=== PATIENT | male | born 1955 | race Asian ===

== ENCOUNTER 2020-11-23 10:18 | Observation (INO) | payer MEDICAID ==
[2020-11-23 10:59] LABS: BASOPHILS # (AUTO) 0.1 10^3/uL (0.0-0.1); BASOPHILS % (AUTO) 0.6 %; EOSINOPHILS # (AUTO) 0.2 10^3/uL (0.0-0.7); EOSINOPHILS % (AUTO) 1.6 %; HGB - HEMOGLOBIN 15.9 g/dL (14.0-18.0); LYMPHOCYTES # (AUTO) 1.9 10^3/uL (1.5-3.5); LYMPHOCYTES % (AUTO) 15.1 %; MEAN CORPUSCULAR HEMOGLOBIN 32.6 pg (27.0-31.0); MEAN CORPUSCULAR HGB CONC 34.1 g/dL (32.0-36.0); MEAN CORPUSCULAR VOLUME 95.5 fL (80.0-94.0); MEAN PLATELET VOLUME 9.7 fL (7.4-11.4); MONOCYTES # (AUTO) 0.9 10^3/uL (0.0-1.0); MONOCYTES % (AUTO) 7.5 %; NEUTROPHILS # (AUTO) 9.4 10^3/uL (1.5-6.6); PLT - PLATELET COUNT 235 10^3/uL (130-450); RED BLOOD COUNT 4.88 10^6/uL (4.70-6.10); RED CELL DISTRIBUTION WIDTH 12.6 % (12.0-15.0); WHITE BLOOD COUNT 12.6 x10^3/uL (4.8-10.8)
[2020-11-23 11:13] LABS: ALBUMIN 4.6 g/dL (3.2-5.5); ALBUMIN/GLOBULIN RATIO 1.3 (1.0-2.2); BILIRUBIN,TOTAL 0.5 mg/dL (0.2-1.0); CALCIUM 9.5 mg/dL (8.5-10.3); TOTAL PROTEIN 8.2 g/dL (6.7-8.2)
--- NOTE | 2020-11-23 11:30 | CT Report ---
PROCEDURE: HEAD WO INDICATIONS: Headache, R sided body numbness x 1 month TECHNIQUE: Noncontrast 4.5 mm thick angled axial sections acquired from the foramen magnum to the vertex. For r adiation dose reduction, the following was used: automated exposure control, adjustment of mA and/or kV according to patient size. COMPARISON: None. FINDINGS: Image quality: Excellent. CSF spaces: Basal cisterns are patent. No extra-axial fluid collections. Ventricles are normal in size and shape. Brain: No midline shift. No intracranial masses or hemorrhage. Ramos-white matter interface is norm al. Skull and face: Calvarium and visualized facial bones are intact, without suspicious lesions. Sinuses: Visualized sinuses and mastoids are clear. IMPRESSION: No acute or otherwise significant intracranial abnormality demonstrated. Reviewed by: Anthony Jimenes MD on 11/23/2020 11:29 AM PST Approved by: Anthony Jimenes MD on 11/23/2020 11:29 AM [facility] Station ID: [id number]
--- NOTE | 2020-11-23 11:53 | ED Physician Documentation ---
PD HPI FOCAL NEURO - Stated complaint Stated Complaint: MALE - Chief complaint Chief Complaint: Neuro - History obtained from History obtained from: Patient - History of Present Illness Timing - onset: Today Timing - duration: Months (1) Timing - details: Intermittant Severity of deficit: Moderate Weakness: No: Face, Arm, Hand, Leg, Foot, Right, Left Numbness: Face, Arm, Hand, Leg, Foot, Right Associated symptoms: Headache (occasional R sided headache) Contributing factors: negative: Anticoagulated, Vascular dz, Atrial fibrillation, Prosthetic heart valve Baseline status: positive: A&OX3, ambulatory, indep Similar symptoms before: Has not had sx before Recently seen: Clinic (sent from clinic today) - Additional information Additional information: 65-year-old male, smokes approximately one quarter of a pack per day of cigarettes. History of hypertension and hyperlipidemia. Presents to the emergency department with intermittent right-sided body numbness. He states that this will include to the face, arm, trunk, abdomen, leg. No weakness or difficulty walking. He states sometimes the numbness will last all day, sometimes only for a few minutes. Nothing makes it better or worse. Also has intermittent right-sided headaches. Has never had any strokelike symptoms before. No history of cardiac events. He was seen at the walk-in clinic earlier today and sent here for evaluation. Patient is accompanied by his daughter. Review of Systems Ten Systems: 10 systems reviewed and negative Constitutional: denies: Fever, Chills Eyes: denies: Loss of vision, Decreased vision, Photophobia Ears: denies: Ear pain Nose: denies: Rhinorrhea / runny nose, Congestion Throat: denies: Sore throat Cardiac: denies: Chest pain / pressure Respiratory: denies: Dyspnea, Cough GI: denies: Abdominal Pain, Nausea, Vomiting, Diarrhea : reports: Dysuria (mild). denies: Frequency, Hesitancy Skin: denies: Rash Musculoskeletal: denies: Neck pain, Back pain Neurologic: reports: Headache (gradual onset, intermittent, 5/10) PD PAST MEDICAL HISTORY - Past Medical History Cardiovascular: Hypertension, High cholesterol - Present Medications Home Medications: Ambulatory Orders Medication Instructions Recorded Confirmed Acetaminophen [Tylenol] 650 mg PO PRN PRN 11/23/20 11/23/20 - Allergies Allergies/Adverse Reactions: Allergies Allergy/AdvReac Type Severity Reaction Status Date / Time No Known Drug Allergies Allergy Verified 11/23/20 10:37 - Living Situation Living Situation: reports: With family Living Arrangement: reports: At home - Social History Does the pt smoke?: Yes Smoking Status: Current every day smoker Does the pt drink ETOH?: Yes Does the pt have substance abuse?: No PD ED PE NORMAL - Vitals Vital signs reviewed: Yes - General General: Alert and oriented X 3, No acute distress, Well developed/nourished - HEENT HEENT: Atraumatic, PERRL, EOMI, Ears normal, Moist mucous membranes, Pharynx benign - Neck Neck: Supple, no meningeal sign - Cardiac Cardiac: RRR, Strong equal pulses - Respiratory Respiratory: No respiratory distress, Clear bilaterally - Abdomen Abdomen: Soft, Non tender, Non distended - Back Back: No CVA TTP, No spinal TTP - Derm Derm: Warm and dry - Extremities Extremities: No edema, No calf tenderness / cord - Neuro Neuro: Alert and oriented X 3, No motor deficit, Other (mild numbness to the R face, arm, leg and trunk. ) Eye Opening: Spontaneous Motor: Obeys Commands Verbal: Oriented GCS Score: 15 - Psych Psych: Normal mood, Normal affect NIHSS - Time Time: 11:30 - Level of Consciousness Level of consciousness: (0) Alert, Keenly responsive LOC Questions: (0) Answers both Q's correct LOC Commands: (0) Performs both correctly - Gaze Best Gaze: (0) Normal - Visual Visual: (0) No loss - Facial Palsy Facial Palsy: (0) Normal, symmetrical movement - Motor Arms (both separate) Motor Arm (right): (0) No drift Motor Arm (left): (0) No drift - Motor Legs (both separate) Motor Leg (right): (0) No drift Motor Leg (left): (0) No drift - Limb Ataxia Limb Ataxia: (0) Absent - Sensory Sensory: (1) Azgi-oj-nkfzbuuk loss - Best Language Best Language: (0) No aphasia - Dysarthria Dysarthria: (0) Normal - Extinction and Inattention (formally neg Extinction and inattention: (0) No abnormality - Total Score/Results Total Score/Result: 1 Results - Vitals Vitals: Vital Signs - 24 hr 11/23/20 11/23/20 11/23/20 10:25 10:46 10:57 Temperature 37.1 C Heart Rate 103 H 99 92 Respiratory 19 20 13 Rate Blood Pressure 184/108 H 208/128 H 208/128 H O2 Saturation 100 97 11/23/20 11/23/20 11/23/20 11:07 11:37 12:05 Temperature Heart Rate 93 93 85 Respiratory 22 22 16 Rate Blood Pressure 195/117 H 176/110 H 195/118 H O2 Saturation 98 99 97 Oxygen O2 Source Room air - Labs Labs: Laboratory Tests 11/23/20 11/23/20 11/23/20 10:52 10:52 10:52 WBC 12.6 H RBC 4.88 Hgb 15.9 Hct 46.6 MCV 95.5 H MCH 32.6 H MCHC 34.1 RDW 12.6 Plt Count 235 MPV 9.7 Neut # (Auto) 9.4 H Lymph # (Auto) 1.9 Anson # (Auto) 0.9 Eos # (Auto) 0.2 Baso # (Auto) 0.1 Absolute Nucleated RBC 0.00 Nucleated RBC % 0.0 PT 11.3 INR 1.0 Sodium 139 Potassium 3.6 Chloride 104 Carbon Dioxide 25 Anion Gap 10.0 BUN 16 Creatinine 1.0 Estimated GFR (MDRD) 75 L Glucose 103 H Calcium 9.5 Total Bilirubin 0.5 AST 30 ALT 31 Alkaline Phosphatase 63 Total Protein 8.2 Albumin 4.6 Globulin 3.6 Albumin/Globulin Ratio 1.3 Lipase 35 Nasal Adenovirus (PCR) Nasal B. parapertussis DNA (PCR) Nasal Coronavir 229E PCR Nasal Coronavir HKU1 PCR Nasal Coronavir NL63 PCR Nasal Coronavir OC43 PCR Nasal Enterovir/Rhinovir PCR Nasal Influenza B PCR Nasal Influenza A PCR Nasal Parainfluen 1 PCR Nasal Parainfluen 2 PCR Nasal Parainfluen 3 PCR Nasal Parainfluen 4 PCR Nasal RSV (PCR) Nasal B.pertussis DNA PCR Nasal C.pneumoniae (PCR) Aleks Human Metapneumo PCR Nasal M.pneumoniae (PCR) Nasal SARS-CoV-2 (PCR) 11/23/20 12:05 WBC RBC Hgb Hct MCV MCH MCHC RDW Plt Count MPV Neut # (Auto) Lymph # (Auto) Anson # (Auto) Eos # (Auto) Baso # (Auto) Absolute Nucleated RBC Nucleated RBC % PT INR Sodium Potassium Chloride Carbon Dioxide Anion Gap BUN Creatinine Estimated GFR (MDRD) Glucose Calcium Total Bilirubin AST ALT Alkaline Phosphatase Total Protein Albumin Globulin Albumin/Globulin Ratio Lipase Nasal Adenovirus (PCR) NOT DETECTED Nasal B. parapertussis DNA (PCR) NOT DETECTED Nasal Coronavir 229E PCR NOT DETECTED Nasal Coronavir HKU1 PCR NOT DETECTED Nasal Coronavir NL63 PCR NOT DETECTED Nasal Coronavir OC43 PCR NOT DETECTED Nasal Enterovir/Rhinovir PCR NOT DETECTED Nasal Influenza B PCR NOT DETECTED Nasal Influenza A PCR NOT DETECTED Nasal Parainfluen 1 PCR NOT DETECTED Nasal Parainfluen 2 PCR NOT DETECTED Nasal Parainfluen 3 PCR NOT DETECTED Nasal Parainfluen 4 PCR NOT DETECTED Nasal RSV (PCR) NOT DETECTED Nasal B.pertussis DNA PCR NOT DETECTED Nasal C.pneumoniae (PCR) NOT DETECTED Aleks Human Metapneumo PCR NOT DETECTED Nasal M.pneumoniae (PCR) NOT DETECTED Nasal SARS-CoV-2 (PCR) NOT DETECTED - Rads (name of study) Head CT Radiology: Prelim report reviewed, EMP read contemporaneously, See rad report (No acute or otherwise significant intracranial abnormality demonstrated. ) PD MEDICAL DECISION MAKING - ED course Complexity details: reviewed results, re-evaluated patient, considered differential, d/w patient, d/w family, d/w retail client solutions consultant ED course: 65 year old male with recurrent stroke like symptoms. no acute findings on head CT. Would benefit from TIA/CVA workup. D/w Dr. Patino, hospitalist accepts Departure - Departure Disposition: ED Place in Observation Clinical Impression: Stroke-like symptoms Condition: Stable Discharge Date/Time: 11/23/20 13:27
[2020-11-23] MEDS ORDERED: BUTALB/ACETAM/CAFF 50/325/40MG TABLET PO STA (11:54)
[2020-11-23] MEDS ORDERED: SODIUM CHLORIDE FLUSH 0.9% 10 ML SYRINGE IVP PRN (12:25)
[2020-11-23] MEDS ORDERED: hydrALAZINE INJ 20 MG/ML VIAL IVP PRN (12:32)
[2020-11-23 12:49] LABS: PT - PROTHROMBIN TIME 11.3 secs (9.9-12.6)
[2020-11-23 13:02] LABS: C. PNEUMONIAE- RESP PCR PANEL NOT DETECTED
[2020-11-23 13:38] LABS: BILIRUBIN,URINE NEGATIVE (NEGATIVE); CLARITY,URINE CLEAR (CLEAR); GLUCOSE, URINE (UA) NEGATIVE (NEGATIVE); KETONES,URINE (UA) NEGATIVE (NEGATIVE); LEUKOCYTE ESTERASE, URINE NEGATIVE (NEGATIVE); NITRITE,URINE NEGATIVE (NEGATIVE); OCCULT BLOOD,URINE NEGATIVE (NEGATIVE); PROTEIN,URINE NEGATIVE (NEGATIVE); UROBILINOGEN,URINE 0.2 (NORMAL) E.U./dL (NORMAL)
[2020-11-23] MEDS: SODIUM CHLORIDE FLUSH 0.9% 10 ML SYRINGE IVP SCH ×2 (13:47→23:52)
[2020-11-23 13:49] LABS: BACTERIA,URINE Rare /HPF (None Seen); RBC,URINE None Seen /HPF (0-5); SQUAMOUS EPITHELIAL CELL,UR RARE Squamous (<= Few)
--- NOTE | 2020-11-23 17:35 | PHARMACY PROGRESS NOTE ---
- Best Possible Medication History Admit Date and Time: 11/23/20 1225 Processed by: Pharmacy Medication History completed: Yes Patient Interview: Pt interview ONLY source (Completed by Avila 11/23, per pt no other medication) As the person ultimately responsible for medication therapy, providers are able to order a medication from an existing home medication list in [facility] via the "Reconcile Routine" prior to Confirmation of that medication by cell support operator. Such practice is discouraged except when the physician, in their clinical judgment, deems that a medical need exists for a medication without regard to previous use.
[2020-11-23] MEDS ORDERED: amLODIPine 5 MG TABLET PO STA (18:40)
[2020-11-23] MEDS: ACETAMINOPHEN 325 MG TABLET PO PRN ×2 (19:23→23:52)
[2020-11-23] MEDS: FAMOTIDINE 20 MG TABLET PO SCH (21:09)
[2020-11-23] MEDS: CIPROFLOXACIN 250 MG TABLET PO SCH (21:09)
[2020-11-24 05:58] LABS: CHOL/HDL RATIO 5.3 (<5.0); CHOLESTEROL 224 mg/dL; HDL CHOLESTEROL 42 mg/dL; LDL CHOLESTEROL,CALCULATED 139 mg/dL; LDL/HDL RATIO 3.3 (<3.6); VLDL CHOLESTEROL 43 mg/dL
[2020-11-24] MEDS: FAMOTIDINE 20 MG TABLET PO SCH ×2 (08:52→19:29)
[2020-11-24] MEDS: CIPROFLOXACIN 250 MG TABLET PO SCH (08:52)
[2020-11-24] MEDS: SODIUM CHLORIDE FLUSH 0.9% 10 ML SYRINGE IVP SCH ×2 (08:57→16:12)
[2020-11-24] MEDS ORDERED: amLODIPine 5 MG TABLET PO SCH ×3 (09:00→10:00)
[2020-11-24] MEDS ORDERED: hydrALAZINE INJ 20 MG/ML VIAL IVP PRN ×2 (09:01→18:22)
[2020-11-24 10:42] LABS: BASOPHILS # (AUTO) 0.1 10^3/uL (0.0-0.1); BASOPHILS % (AUTO) 0.7 %; EOSINOPHILS # (AUTO) 0.4 10^3/uL (0.0-0.7); EOSINOPHILS % (AUTO) 4.3 %; HGB - HEMOGLOBIN 15.4 g/dL (14.0-18.0); LYMPHOCYTES # (AUTO) 2.1 10^3/uL (1.5-3.5); LYMPHOCYTES % (AUTO) 22.4 %; MEAN CORPUSCULAR HEMOGLOBIN 32.2 pg (27.0-31.0); MEAN CORPUSCULAR HGB CONC 32.8 g/dL (32.0-36.0); MEAN CORPUSCULAR VOLUME 98.1 fL (80.0-94.0); MEAN PLATELET VOLUME 10.5 fL (7.4-11.4); MONOCYTES # (AUTO) 0.9 10^3/uL (0.0-1.0); MONOCYTES % (AUTO) 9.1 %; NEUTROPHILS % (AUTO) 63.2 %; PLT - PLATELET COUNT 244 10^3/uL (130-450); RED BLOOD COUNT 4.79 10^6/uL (4.70-6.10); RED CELL DISTRIBUTION WIDTH 12.9 % (12.0-15.0); WHITE BLOOD COUNT 9.5 x10^3/uL (4.8-10.8)
[2020-11-24 10:50] LABS: CALCIUM 9.4 mg/dL (8.5-10.3); CREATININE 0.9 mg/dL (0.6-1.2)
[2020-11-24] MEDS: ACETAMINOPHEN 325 MG TABLET PO PRN ×3 (11:52→19:57)
[2020-11-24] MEDS ORDERED: TAMSULOSIN 0.4 MG CAPSULE PO SCH (12:00)
--- NOTE | 2020-11-24 13:10 | HISTORY & PHYSICAL EXAMINATION ---
DATE OF SERVICE: 11/23/2020 Physician: Viviana Patino MD HISTORY OF PRESENT ILLNESS: This is a 65-year-old man of Stateless origin, he speaks no Kiswahili, his daughter is at the bedside and is an underground utility locator. The patient has a history of smoking about 1/4 pack of cigarettes a day, hypertension, and hyperlipidemia. The patient has had 1 month of right-sided body numbness that was constant or was intermittent and included the face, right arm, right side of the trunk and abdomen and the right leg. There was no weakness or trouble walking with this. In the ER, the description was that the numbness would last all day or sometimes just a few minutes. There was no pattern to when it occurred and nothing made it better or worse. With it, he also had an intermittent right-sided headache. He has never had symptoms like this before. Today, there has been no right-sided numbness, but he noticed severe tenderness when touching the right forehead. The daughter took the patient to a walk-in clinic and with these complaints, he was sent to come to our ER. He currently denies any numbness and has severe tenderness when touching the right forehead, no rash is seen there. He denies any fever today. There are no cardiac or pulmonary complaints, no GI complaints, he has had no fever. REVIEW OF SYSTEMS: The daughter states that over the past 1 month, he has had dysuria going to urinate about every 30 minutes when he is awake and has complained to her of painful urination as well. A comprehensive review of systems was performed by talking to the daughter, who interpreted for the patient and the pertinent positives are listed, the rest are negative. ALLERGIES: NONE. MEDICATIONS: None except Tylenol prn. Even though he carries diagnoses of HTN and hyperlipidemia, these were "treated with diet" in [place], and he has been in the [facility] 2 years and has never seen a doctor here and has no medications prescribed.. SOCIAL HISTORY: A 1/4 pack a day smoker daily, drinks alcohol occasionally, no history of substance abuse. He lives with the daughter and his grandchildren. PHYSICAL EXAM GENERAL: Middle-aged male, who appears to be in no distress. He is supine in bed. VITAL SIGNS: Blood pressure 176/87, but at his highest the blood pressure was 196/112 on presentation. Heart rate is 75-85 in sinus rhythm, afebrile, and room air saturation 94%. HEENT: Reveals no discoloration of the face. There is tenderness to touch, which is severe, over the right forehead, which stops at midline. There is no rash noted in any part of the face. His skin is shiny and greasy, and is warm to touch. Mouth has moist oral mucosa and good dentition. NECK: No JVD in a supine position. CHEST: Clear. HEART: Normal heart sounds. No murmurs. ABDOMEN: Soft, nontender. Normal bowel sounds. EXTREMITIES: No clubbing, cyanosis or edema. NEUROLOGIC: Motor exam is grossly intact. His neurologic sensory exam is also intact and equal on both lower and upper extremities, both sides of the face. There is no numbness, but only the tenderness to touch in the right forehead area. There is no tenderness of the posterior occiput of the head. He has no facial droop. There is no tremor. He is speaking normally without slurring. LABORATORY DATA: Normal electrolytes. Normal BUN and creatinine. Glucose 103. Normal liver tests. Normal INR of 1. White blood count 12.6, hemoglobin 15.9 with MCV of 95, platelet count normal at 235. Urinalysis shows a pH of 6, specific gravity 1.02. No nitrites, negative leukocyte esterase. There are few white cells seen of 0-3 and rare bacteria, but also rare squamous cells. His respiratory swab was negative for COVID. IMAGING: A head CT was done that showed no acute or significant intracranial abnormality. EKG: Normal sinus rhythm, left atrial enlargement, otherwise within normal limits. IMPRESSION/DIAGNOSES 1. Numbness of the right side, which is now dissipated. 2. Right forehead tenderness without rash, very suspicious for a shingles outbreak. 3. Dysuria with a somewhat abnormal urinalysis. 4. Hypertension, uncontrolled. 5. Tobacco user. PLAN: Place the patient in Observation status for evaluation of stroke-like symptoms. Obtain a brain MRI. Obtain carotid Doppler and Echo. Place the patient on telemetry to watch for AFib. Recommend confirming what his medications are and resuming any medicines for hypertension that he may be on. We will allow permissive hypertension, however; no blood pressures under 160 shall be treated in case this was a stroke and symptoms that he had for the last 1 month. Obtain PCR testing of a skin swab of the forehead, watch for rash eruption. Begin a nicotine patch for any cigarette urges. Begin a low-salt diet. Check a lipid panel and treat per guidelines. Begin empiric treatment for his dysuria with oral antibiotics and we will also obtain CT of the abdomen and pelvis to look for structural abnormality such as possible pyelonephritis, especially given the high white blood count. DVT PROPHYLAXIS: BELEN stockings. CODE STATUS: FULL CODE. ATTESTATION: The patient is expected to be discharged or transferred to another facility within 96 hours: Yes. TD: 11/23/2020 17:34 MTDBrad
--- NOTE | 2020-11-24 17:24 | Ultrasound Report ---
PROCEDURE: Carotid Doppler Complete INDICATIONS: CVA TECHNIQUE: Color and pulse Doppler interrogation was performed of both carotid systems, with image documentation and velocity measurements. COMPARISON: None. FINDINGS: Right side: Common carotid artery peak systolic velocity: 90.6 cm/sec. Internal carotid artery peak systolic velocity: 75.7 cm/sec. Internal carotid artery end diastolic velocity: 35.9 cm/sec. External carotid artery peak systolic velocity: 107.1 cm/sec. ICA/CCA peak systolic ratio: 1.1 . Ramos scale imaging description: Slight soft plaque Percent internal carotid artery stenosis: Less than 50% stenosis . Vertebral artery: Flow direction is antegrade. Left side: Common carotid artery peak systolic velocity: 83.4 cm/sec. Internal carotid artery peak systolic velocity: 69.2 cm/sec. Internal carotid artery end diastolic velocity: 27.1 cm/sec. External carotid artery peak systolic velocity: 90.6 cm/sec. ICA/CCA peak systolic ratio: 0.8 . Ramos scale imaging description: Minimal soft plaque Percent internal carotid artery stenosis: Less than 50% stenosis . Vertebral artery: Flow direction is antegrade. IMPRESSION: Less than 50% stenosis of the proximal internal carotid arteries, minimal findings, no hemodynamicall y significant stenosis found. The estimate of stenosis included in the report of the imaging study was calculated using the NASCET method Reviewed by: Andrés Jeronimo MD on 11/24/2020 5:22 PM PST Approved by: Andrés Jeronimo MD on 11/24/2020 5:22 PM PST Station ID: [id number]
[2020-11-24] MEDS ORDERED: lisinopriL 5 MG TABLET PO SCH (18:25)
--- NOTE | 2020-11-24 19:02 | MRI Report ---
PROCEDURE: Brain W/O INDICATIONS: TIA vs CVA TECHNIQUE: Noncontrast axial T1 spin echo, axial T2 fast spin echo, sagittal and axial FLAIR, coronal T2 fast sp in echo, axial gradient echo, axial diffusion and ADC through the brain. COMPARISON: CT of the head from the same date. FINDINGS: Image quality: Excellent. CSF Spaces: Basal cisterns are patent. No extra-axial fluid collections. Ventricles are normal in size and shape. Brain: There is 8 mm area of mild restricted diffusion seen involving enteral medial aspect of upper left cerebellum without significant signal loss on ADC maps suggestive of subacute infarction in thi s area. No other area of abnormal restricted diffusion is seen. No intracranial masses or hemorrhage. Ramos/white matter interface is normal. Brainstem appears normal. Mild periventricular and deep whi te matter chronic small vessel ischemic changes are seen. Diffuse cerebral and cerebellar cortical at rophy is also noted. Normal intravascular flow voids are present. Skull and face: Calvarium has normal marrow signal. Orbits appear normal. Sinuses: Sinuses and mastoids are clear. IMPRESSION: 1. Finding is concerning for small area of subacute infarction involving left anterior cerebellum as above. 2. No evidence of acute infarction. No intracranial bleed, midline shift or mass effect. 3. Age-appropriate atrophy and suggestion of mild to moderate periventricular and deep white matter c hronic small vessel ischemic changes. Reviewed by: Manny Ibarra MD on 11/24/2020 6:00 PM [facility] Approved by: Manny Ibarra MD on 11/24/2020 6:00 PM [facility] Station ID: [id number]
[2020-11-24] MEDS ORDERED: ASPIRIN CHEW 81 MG TABLET PO SCH (19:13)
--- NOTE | 2020-11-24 19:17 | Discharge Plan ---
Discharge Plan Problem Reviewed?: Yes Disposition: Home, Self Care Condition: Stable Prescriptions: Aspirin [Aspirin EC] 81 mg PO DAILY #30 tablet. Tamsulosin [Flomax] 0.4 mg PO DAILY #30 capsule Atorvastatin [Lipitor] 40 mg PO QPM #30 tablet amLODIPine [Norvasc] 10 mg PO DAILY #60 tablet lisinopriL [Zestril] 5 mg PO DAILY #30 tablet Diet: Regular Activity Restrictions: Activity as Tolerated Shower Restrictions: No (fall precaution) Instruction Topics: Atorvastatin tablets, Aspirin ASA chewable tablets, Lisinopril tablets, Amlodipine, Tamsulosin capsules Health Concerns: stroke Plan of Treatment: MRI show you had small subacute left stroke. Beside numbness, you have no other focus neurological deficit. you are prescribed aspirin, lipitor. you are prescribed Norvasc, Lisinopril for your blood pressure control, and Flomax for your BPH, followup with PCP in one to two weeks, followup with neurologist as out-pt. Care Goals: stabilization and improvement of your medical conditions Assessment: discussed the care plan with your daughter, answered her questions, she understood and agreed. Additional Instructions or Follow Up instructions: You may follow-up with PCP in 1 to 2 weeks, should Your symptoms return or worsen, you may present ER or call 911 for help. No Smoking: If you smoke, Please STOP! Call for help.
--- NOTE | 2020-11-24 19:32 | DISCHARGE SUMMARY ---
Discharge Summary Admit Date: 11/23/20 Discharge Date: 11/24/20 Discharging Provider: Shaheed Hutchison Condition at Discharge: Stable Discharge Disposition: 01 Home, Self Care Discharge Facility Name: home - DIAGNOSES Discharge Diagnoses with Status of Each Condition: 1, stroke, MRI of brain show small area of subacute infarction involving anterior cerebellum. other image studies including CAT scan of the brain, ultrasound of the neck, echo, were unremarkable. Patient reported he has improved numbness on today, he has no other Focal neuro deficits. I saw patient walk and talk without any issue. Patient is prescribed aspirin, Lipitor 2, HTN, stable, Patient is prescribed amlodipine and lisinopril, follow-up with PCP management 3, HLD, pt is Prescribed Lipitor. 4, BPH, Patient's daughter report her father has BPH issue but denies dysuria. UA was Negative for UTI - HPI History of Present Illness: This is a 65 male with past medical history of hypertension, hyperlipidemia, current cigarette smoke, Who comes to ER complain about one month right side body numbness intermittently. There was no weakness Unilaterally or trouble walking or talking, or swallowing issue. - HOSPITAL COURSE Hospital Course: Patient was admitted for stroke evaluation, patient report he has about 1 month right sided numbness on and off, Otherwise He denies any focal neuro deficit. MRI of the brain show subacute small area of stroke at left anterior cerebellum. Patient reported his numbness improved, Otherwise patient has no other focal neuro deficits in the hospital. Social work help with patient to find PCP. Patient was advised strongly to quit cigarette smoking. - ALLERGIES Allergies/Adverse Reactions: Allergies Allergy/AdvReac Type Severity Reaction Status Date / Time No Known Drug Allergies Allergy Verified 11/23/20 10:37 - MEDICATIONS Home Medications: Ambulatory Orders Medication Instructions Recorded Confirmed Acetaminophen [Aphen] 650 mg PO TID 11/23/20 11/23/20 Aspirin [Aspirin EC] 81 mg PO DAILY #30 tablet. 11/24/20 Atorvastatin [Lipitor] 40 mg PO QPM #30 tablet 11/24/20 Tamsulosin [Flomax] 0.4 mg PO DAILY #30 capsule 11/24/20 amLODIPine [Norvasc] 10 mg PO DAILY #60 tablet 11/24/20 lisinopriL [Zestril] 5 mg PO DAILY #30 tablet 11/24/20 - PHYSICAL EXAM AT DISCHARGE General Appearance: positive: No acute distress, Alert. negative: Lethargic Eyes Bilateral: positive: Normal inspection, PERRL, No lid inflammation ENT: positive: ENT inspection nml, No signs of dehydration. negative: Purulent nasal drainage Neck: positive: Nml inspection, Trachea midline. negative: Thyromegaly, Tracheal deviation Respiratory: positive: Chest non-tender, No respiratory distress. negative: Wheezes, Rales, Rhonchi Cardiovascular: positive: Regular rate & rhythm, No murmur. negative: Tachycardia, Bradycardia, Systolic murmur, Diastolic murmur Peripheral Pulses: positive: 2+ Abdomen: positive: Non-tender, Nml bowel sounds, No distention. negative: Tenderness, Guarding, Rebound Back: positive: Nml inspection. negative: CVA tenderness (R), CVA tenderness (L) Skin: positive: Color nml, Warm, Dry. negative: Cyanosis, Diaphoresis, Pallor Extremities: positive: Non-tender, Full ROM, Nml appearance. negative: Calf tenderness, Rajat's sign/cords Neurologic/Psychiatric: positive: Oriented x3, Motor nml, Mood/affect nml. negative: Weakness, Sensory loss, Facial droop, Slurred/abnml speech, Depressed mood/affect - LABS Result Diagrams: 11/24/20 05:15 11/24/20 05:15 - FOLLOW UP Follow Up: MRI show you had small subacute left stroke. Beside numbness, you have no other focus neurological deficit. you are prescribed aspirin, lipitor. you are prescribed Norvasc, Lisinopril for your blood pressure control, and Flomax for your BPH, followup with PCP in one to two weeks, followup with neurologist as out-pt. You may follow-up with PCP in 1 to 2 weeks, should Your symptoms return or worsen, you may present ER or call 911 for help. - TIME SPENT Time Spent in Discharge (Minutes): 30
[2020-11-24] MEDS: ATORVASTATIN 40 MG TABLET PO SCH ×2 (19:54→20:01)
[2020-11-24] MEDS ORDERED: ATORVASTATIN 40 MG TABLET PO SCH (21:00)
[2020-11-24 21:03] VITALS: BP 148/76
[2020-11-25] MEDS ORDERED: amLODIPine 5 MG TABLET PO SCH ×2 (09:00)
== END 2020-11-24 20:45 | disposition home or self-care (01) ==
LOC: ED 10:18 → MS2 12:25
PROVIDERS: ADMIT Internal Medicine; ATTEND Internal Medicine
DX: I63.9 Cerebral infarction, unspecified (principal); G81.91 Hemiplegia, unspecified affecting right dominant side; R29.701 NIHSS score 1; I10 Essential (primary) hypertension; F17.210 Nicotine dependence, cigarettes, uncomplicated; E78.5 Hyperlipidemia, unspecified; N40.0 Benign prostatic hyperplasia without lower urinary tract symptoms; R30.0 Dysuria; R51.9 Headache, unspecified; Z20.822 Contact with and (suspected) exposure to COVID-19
CPT/HCPCS: 0202U; 36415; 70450; 70551; 80048; 80053; 80061; 81001; 83690; 85025; 85610; 93005; 93306; 93880; 96374; 96376; 99285; A9270; G0378; 83721; 87086; 87529